=== PATIENT | male | born 1955 | race Caucasian/White ===

== ENCOUNTER → 2017-10-11 | Outpatient (CLI) | payer OTHER ==
[~2017-10-11] MED LIST: ACET325 PO; ALBU90OI; Advil200 M1; CHOL10002; CLON.5; CLON.5 PO; DIVA500ER PO; HYDACE5 PO; IBUP400 PO; OXYACE5T PO; OXYC5 PO; SOMA350 MG
== END ==
LOC: PLD 11:51 → LAB SHORT 11:51
DX: D48.5 Neoplasm of uncertain behavior of skin (principal)
CPT/HCPCS: 88305

== ENCOUNTER → 2019-06-25 | Outpatient (CLI) | payer OTHER ==
[~2019-06-25] MED LIST changes: +8 Hour C500 MG PO; +ALBU90OI6 INH; +Cialis20 MG PO; +Naltrexone HCl50 MG; +SILD50TA PO
== END | disposition home or self-care (01) ==
LOC: LAB 18:48 → LAB SHORT 18:48
DX: N30.01 Acute cystitis with hematuria (principal)
CPT/HCPCS: 87086

== ENCOUNTER 2020-02-14 17:43 | Emergency (ER) | payer OTHER ==
[~2020-02-14] VITALS: Ht 185.4 cm; Wt 129.3 kg
[2020-02-14 18:28] LABS: BASOPHILS ABSOLUTE AUTO 0.06 K/mm3 (0.00-0.23); BASOPHILS PERCENT AUTO 1 % (0-2); EOSINOPHILS ABSOLUTE AUTO 0.07 K/mm3 (0.00-0.68); EOSINOPHILS PERCENT AUTO 1 % (0-6); Hematocrit 43.7 % (37.0-53.0); Hemoglobin 13.8 g/dL (13.5-17.5); IMMATURE GRAN ABSOLUTE AUTO 0.08 K/mm3 (0.00-0.10); IMMATURE GRAN PERCENT AUTO 1 % (0-1); LYMPHOCYTES ABSOLUTE AUTO 1.34 K/mm3 (0.84-5.20); LYMPHOCYTES PERCENT AUTO 13 % (21-46); MONOCYTES ABSOLUTE AUTO 0.63 K/mm3 (0.16-1.47); MONOCYTES PERCENT AUTO 6 % (4-13); Mean Corpuscular HGB 26.9 pg (26.0-34.0); Mean Corpuscular HGB Conc 31.6 g/dL (31.5-36.5); Mean Corpuscular Volume 85 fL (80-100); Mean Platelet Volume 10.3 fL (9.1-12.4); NEUTROPHILS ABSOLUTE AUTO 8.08 K/mm3 (1.96-9.15); NEUTROPHILS PERCENT AUTO 79 % (41-73); Platelet Count 258 K/mm3 (150-400); RDW Coefficient Variation 15.3 % (11.7-14.2); RDW Standard Deviation 47.7 fL (35.1-46.3); Red Blood Cell Count 5.13 M/mm3 (4.30-5.90); White Blood Cell Count 10.26 K/mm3 (4.00-11.30)
[2020-02-14 18:45] LABS: Alanine Aminotransfer (ALT/SGP 38 U/L (12-78); Albumin, Blood 3.9 g/dL (3.4-5.0); Albumin/Globulin Ratio 1.1 (0.8-1.8); Alk Phos 61 U/L (50-136); Anion Gap 8 mmol/L (6-16); Aspartate Aminotrans (AST/SGOT 25 U/L (12-37); Bilirubin, Total 0.7 mg/dL (0.1-1.0); Blood Urea Nitrogen 14 mg/dL (8-24); Bun/Creatinine Ratio 16.2 (12.0-20.0); CO2, Blood 24 mmol/L (21-32); Calcium, Blood 9.4 mg/dL (8.5-10.1); Chloride, Blood 111 mmol/L (98-108); Creatinine, Blood 0.86 mg/dL (0.60-1.20); Globulin, Blood 3.5 g/dL (2.2-4.0); Glomerular Filtration Rate >60 (60-); Glucose, Blood 134 mg/dL (70-99); Potassium, Blood 3.6 mmol/L (3.5-5.5); Sodium, Blood 143 mmol/L (136-145); Total Protein, Blood 7.4 g/dL (6.4-8.2)
[2020-02-14] MEDS ORDERED: Valium5 MG PO (20:40)
[2020-02-14] MEDS ORDERED: ONDA4ODT MM (20:46)
== END 2020-02-14 20:55 | disposition home or self-care (01) ==
LOC: ER 17:43
PROVIDERS: Physician Assistant
DX: S06.0X9A Concussion with loss of consciousness of unspecified duration, initial encounter (principal); I10 Essential (primary) hypertension; Z88.2 Allergy status to sulfonamides; Z88.1 Allergy status to other antibiotic agents; Z88.0 Allergy status to penicillin; V37.5XXA Driver of three-wheeled motor vehicle injured in collision with fixed or stationary object in traffic accident, initial encounter; Y92.410 Unspecified street and highway as the place of occurrence of the external cause
CPT/HCPCS: 36415; 70450; 71260; 72125; 74177; 80053; 85025; 93005; 93010; 96374; 99284-25; J2405; Q9967

== ENCOUNTER 2021-06-30 10:19 | Day surgery (SDC) | payer OTHER ==
[~2021-06-30] VITALS: Ht 185.4 cm; Wt 131.2 kg
[~2021-06-30 10:19] MED LIST changes: +ONDA4ODT MM; +Valium5 MG PO
[2021-06-30] MEDS ORDERED: CLON.5 (10:51)
== END 2021-06-30 12:40 | disposition home or self-care (01) ==
LOC: ORSCSDS 10:19
PROVIDERS: Internal Medicine Gastroenterology
PROC: 0DJD8ZZ Inspection of Lower Intestinal Tract, Via Natural or Artificial Opening Endoscopic (ICD-10-PCS; principal; 2021-06-30 11:45)
DX: Z12.11 Encounter for screening for malignant neoplasm of colon (principal); K64.8 Other hemorrhoids; Z86.010 Personal history of colon polyps; E07.9 Disorder of thyroid, unspecified; E66.9 Obesity, unspecified; Z68.38 Body mass index [BMI] 38.0-38.9, adult
CPT/HCPCS: J2704; J7120

== ENCOUNTER 2022-11-17 08:47 | Emergency (ER) | payer OTHER ==
[~2022-11-17] VITALS: Ht 185.4 cm; Wt 110.7 kg
[2022-11-17] MEDS ORDERED: CARVEDILOL ER20 MG PO (09:33)
[2022-11-17] MEDS ORDERED: FUROSEMIDE20 MG PO (09:33)
[2022-11-17] MEDS ORDERED: CARVEDILOL12.5 MG PO (09:33)
[2022-11-17] MEDS ORDERED: LISI5 (09:33)
[2022-11-17] MEDS ORDERED: KLOR-CON 1010 ME9 PO (09:33)
[2022-11-17 09:34] LABS: BASOPHILS ABSOLUTE AUTO 0.04 K/mm3 (0.00-0.23); BASOPHILS PERCENT AUTO 1 % (0-2); EOSINOPHILS ABSOLUTE AUTO 0.19 K/mm3 (0.00-0.68); EOSINOPHILS PERCENT AUTO 3 % (0-6); Hematocrit 41.9 % (37.0-53.0); Hemoglobin 14.2 g/dL (13.5-17.5); IMMATURE GRAN ABSOLUTE AUTO 0.02 K/mm3 (0.00-0.10); IMMATURE GRAN PERCENT AUTO 0 % (0-1); LYMPHOCYTES ABSOLUTE AUTO 1.47 K/mm3 (0.84-5.20); LYMPHOCYTES PERCENT AUTO 22 % (21-46); MONOCYTES ABSOLUTE AUTO 0.49 K/mm3 (0.16-1.47); MONOCYTES PERCENT AUTO 7 % (4-13); Mean Corpuscular HGB 32.2 pg (26.0-34.0); Mean Corpuscular HGB Conc 33.9 g/dL (31.5-36.5); Mean Corpuscular Volume 95 fL (80-100); NEUTROPHILS ABSOLUTE AUTO 4.46 K/mm3 (1.96-9.15); NEUTROPHILS PERCENT AUTO 67 % (41-73); Platelet Count 211 K/mm3 (150-400); RDW Standard Deviation 49.2 fL (35.1-46.3); Red Blood Cell Count 4.41 M/mm3 (4.30-5.90); White Blood Cell Count 6.67 K/mm3 (4.00-11.30)
[2022-11-17 10:00] LABS: Alanine Aminotransfer (ALT/SGP 29 U/L (12-78); Albumin, Blood 3.1 g/dL (3.4-5.0); Albumin/Globulin Ratio 1.1 (0.8-1.8); Alk Phos 65 U/L (50-136); Anion Gap 4 mmol/L (6-16); Aspartate Aminotrans (AST/SGOT 25 U/L (12-37); Bilirubin, Total 0.5 mg/dL (0.1-1.0); Blood Urea Nitrogen 24 mg/dL (8-24); Bun/Creatinine Ratio 37.1 (12.0-20.0); CO2, Blood 28 mmol/L (21-32); Calcium, Blood 8.5 mg/dL (8.5-10.1); Chloride, Blood 111 mmol/L (98-108); Creatinine, Blood 0.65 mg/dL (0.60-1.20); Ethanol (Alcohol), Blood, Med <3 mg/dL; Globulin, Blood 2.9 g/dL (2.2-4.0); Glomerular Filtration Rate 105 (60-); Glucose, Blood 109 mg/dL (70-99); Potassium, Blood 4.3 mmol/L (3.5-5.5); Sodium, Blood 143 mmol/L (136-145)
[2022-11-17 10:29] LABS: U Amphetamine Screen Not Detected; U Barbituate Screen Not Detected; U Benzodiazapine Screen DETECTED; U Buprenorphine Screen Not Detected; U Cannabinoids Screen Not Detected; U Cocaine Screen Not Detected; U Methadone Screen Not Detected; U Methamphetamine Screen Not Detected; U Opiates Screen Not Detected; U Oxycodone Screen Not Detected; U Phencyclidine Screen Not Detected; U Propoxyphene Screen Not Detected
[2022-11-17 11:04] VITALS: BP 114/63
== END 2022-11-17 11:14 | disposition home or self-care (01) ==
LOC: ER 08:47
PROVIDERS: Emergency Medicine
DX: R41.82 Altered mental status, unspecified (principal); I10 Essential (primary) hypertension; Z88.0 Allergy status to penicillin; Z88.6 Allergy status to analgesic agent; Z88.1 Allergy status to other antibiotic agents; Z88.8 Allergy status to other drugs, medicaments and biological substances; Z79.899 Other long term (current) drug therapy
CPT/HCPCS: 70450; 80053; 85025; 93005; 93010; 96360; 99285-25; G0480; J7030

== ENCOUNTER 2023-05-05 14:43 | Emergency (ER) | payer OTHER, MEDICARE ==
[~2023-05-05] VITALS: Ht 185.4 cm; Wt 112.5 kg
[~2023-05-05 14:43] MED LIST changes: +CARVEDILOL ER20 MG PO; +CARVEDILOL12.5 MG PO; +FUROSEMIDE20 MG PO; +KLOR-CON 1010 ME9 PO; +LISI5
[2023-05-05 15:11] VITALS: BP 154/82
[2023-05-05 15:44] LABS: BASOPHILS ABSOLUTE AUTO 0.06 K/mm3 (0.00-0.23); BASOPHILS PERCENT AUTO 1 % (0-2); EOSINOPHILS ABSOLUTE AUTO 0.18 K/mm3 (0.00-0.68); EOSINOPHILS PERCENT AUTO 2 % (0-6); Hemoglobin 15.2 g/dL (13.5-17.5); IMMATURE GRAN ABSOLUTE AUTO 0.05 K/mm3 (0.00-0.10); IMMATURE GRAN PERCENT AUTO 1 % (0-1); LYMPHOCYTES ABSOLUTE AUTO 1.71 K/mm3 (0.84-5.20); LYMPHOCYTES PERCENT AUTO 19 % (21-46); MONOCYTES ABSOLUTE AUTO 0.66 K/mm3 (0.16-1.47); MONOCYTES PERCENT AUTO 7 % (4-13); Mean Corpuscular HGB 31.8 pg (26.0-34.0); Mean Corpuscular HGB Conc 34.5 g/dL (31.5-36.5); Mean Corpuscular Volume 92 fL (80-100); Mean Platelet Volume 9.4 fL (9.1-12.4); NEUTROPHILS ABSOLUTE AUTO 6.24 K/mm3 (1.96-9.15); NEUTROPHILS PERCENT AUTO 70 % (41-73); Platelet Count 319 K/mm3 (150-400); RDW Coefficient Variation 13.2 % (11.7-14.2); RDW Standard Deviation 44.5 fL (35.1-46.3); Red Blood Cell Count 4.78 M/mm3 (4.30-5.90)
[2023-05-05 16:00] LABS: Albumin, Blood 3.1 g/dL (3.4-5.0); Albumin/Globulin Ratio 0.8 (0.8-1.8); Bilirubin, Total 1.1 mg/dL (0.1-1.0); Bun/Creatinine Ratio 20.7 (12.0-20.0); Calcium, Blood 9.3 mg/dL (8.5-10.1); Creatinine, Blood 0.63 mg/dL (0.60-1.20); Globulin, Blood 4.1 g/dL (2.2-4.0); Total Protein, Blood 7.2 g/dL (6.4-8.2)
== END 2023-05-05 18:28 | disposition left against medical advice (07) ==
LOC: ER 14:43
PROVIDERS: Student in an Organized Health Care Education/Training Program
DX: R05.9 Cough, unspecified (principal); Z53.21 Procedure and treatment not carried out due to patient leaving prior to being seen by health care provider
CPT/HCPCS: 71046; 80053; 84484; 85025; 93005; 93010; 99282-25

== ENCOUNTER 2023-05-13 06:45 | Day surgery (SDC) | payer OTHER ==
[2023-05-13] VITALS (13 sets, daily range): BP systolic 99–129; BP diastolic 66–96
[~2023-05-13] VITALS: Ht 185.4 cm; Wt 117.0 kg
[2023-05-13] MEDS ORDERED: SILD50TA PO (07:39)
--- NOTE | 2023-05-13 11:10 | NUR ---
ASSUMED CARE OF PT POST PROCEDURE. PT AWAKE AND CONVERSIG APPROPRIATELY; DENIES CHEST PAIN POST PROCEDURE. MONITOR SR WITH PVCS 60'S, B/P 129/80, SPO2 98% RA, AFEBRILE. R RADIAL SITE NO SWELLING/HEMATOMA, TR BAND IN PLACE; RUE POSITIVE PLEUTH POST TR BAND PLACEMENT.
--- NOTE | 2023-05-13 12:29 | NUR ---
2 CC OF AIR REMOVED FROM RIGHT RADIAL TR BAND. SITE C/D/I SOFT/NONTENDER, NO EVIDENCE OF HEMATOMA. PATIENT SITTING IN RECLINER, TOLERATING PO INTAKE WELL. VSS ON RA.
[2023-05-13] MEDS ORDERED: Aspir 8181 MG PO (12:33)
--- NOTE | 2023-05-13 12:41 | NUR ---
ADDITIONAL 2 CC OF AIR REMOVED FROM RIGHT RADIAL TR BAND. VSS ON RA. PATIENT RESTING COMFORTABLY IN RECLINER.
--- NOTE | 2023-05-13 12:57 | NUR ---
ADDITIONAL 3 CC OF AIR REMOVED FROM RIGHT RADIAL TR BAND. SITE C/D/I SOFT/NONTENDER. NO EVIDENCE OF BLEEDING. VSS ON RA
--- NOTE | 2023-05-13 13:05 | NUR ---
PRELUDE BAND FULLY DEFLATED, R RADIAL SITE WITHOUT SWELLING/HEMATOMA.
--- NOTE | 2023-05-13 13:25 | NUR ---
R RADIAL SITE UNCHANGED POST PRELUDE BAND DEFLATION.
--- NOTE | 2023-05-13 13:40 | NUR ---
PT DRESSED SELF WITHOUT ISSUE, SITE UNCHANGED. PRELUDE BAND REMOVED, CLOTH DOT AND WRIST IMMOBILIZER PLACED; IV REMOVED-CANNULA INTACT.
--- NOTE | 2023-05-13 13:50 | NUR ---
PT RECEIVED DISCHARGE INSTRUCTIONS, MED LIST AND AFTER CARE INSTRUCTIONS; VERBALIZED GOOD UNDERSTANDING. PT LEFT FACILITY VIA W/C, CONDITION STABLE.
== END 2023-05-13 13:50 | disposition home or self-care (01) ==
LOC: MHTC 06:45
DX: I25.10 Atherosclerotic heart disease of native coronary artery without angina pectoris (principal); Z88.1 Allergy status to other antibiotic agents; F31.9 Bipolar disorder, unspecified
CPT/HCPCS: 76937; 93454; 99152; A9270; C1769; C1887; C1894; J1644; J2250; J3010; J7030; J7050; Q9967